=== PATIENT | male | born 1965 | race Two or more races ===

== ENCOUNTER 2020-07-09 11:03 | Outpatient (REF) | payer OTHER, SELFPAY | END 2020-07-09 11:04 | disposition home or self-care (01) | LOC: HO.LAB 11:03 | PROVIDERS: Visit Provider Internal Medicine | DX: Z20.828 Contact with and (suspected) exposure to other viral communicable diseases (principal) | CPT/HCPCS: U0003 ==

== ENCOUNTER 2024-09-11 08:22 | Emergency (ER) | payer OTHER, SELFPAY ==
--- NOTE | ~2024-09-11 | US_ITS ---
EXAMINATION: US TRIPLEX LOWER EXTREMITY, RIGHT CLINICAL INFORMATION: Pain in right lower extremity COMPARISON: None available. TECHNIQUE: Color-flow triplex imaging with spectral analysis and compression Doppler were performed on the right lower extremity. FINDINGS: Respiratory variation, normal compression and augmented flow are noted throughout the right lower extremity. The visualized common femoral vein, superficial femoral vein, profunda femoral vein, popliteal vein and midcalf peroneal and posterior tibial venous segments show no evidence of deep venous thrombosis. There is no Clemons's cyst. Nonspecific prominent 2.7 cm inguinal lymph node. US/US venous duplex LE RT IMPRESSION: No acute deep venous thrombosis involving the right lower extremity. Electronically signed by: Sergei Pinto MD 09/11/2024 03:20 PM [facility]
--- NOTE | ~2024-09-11 | XR_ITS ---
EXAMINATION: XR KNEE, RIGHT CLINICAL INFORMATION: right knee pain COMPARISON: October 02, 2019 TECHNIQUE: Four views of the right knee. FINDINGS: Endplate sclerosis involving the medial and to a lesser extent lateral tibial plateau. Small marginal osteophyte formation the medial femoral condyle and medial tibial plateau. Asymmetric joint space narrowing involving mostly the medial compartment. No acute cortical disruption or gross malalignment. Osteopenia versus the processes. Suprapatellar bursa joint effusion, moderate volume. No lytic or blastic lesions. XR/XR knee RT 4V IMPRESSION: Tricompartmental osteoarthrosis involving mostly the medial compartment. Suprapatellar bursa joint effusion. Electronically signed by: Sergei Pinto MD 09/11/2024 09:43 AM [facility]
[2024-09-11 08:35] VITALS: BP 128/80; PULSE 73; RESP 16; TEMP 36.5; O2SAT 94; BMI 32.2
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
[2024-09-11 15:28] VITALS: BP 141/81; PULSE 72; RESP 18; TEMP 36.2; O2SAT 95
[2024-09-11 15:33] VITALS: BP 141/81; PULSE 72; RESP 18; TEMP 36.2; O2SAT 95
== END 2024-09-11 15:33 | disposition home or self-care (01) ==
PROVIDERS: Emergency Provider Emergency Medicine
DX: M17.12 Unilateral primary osteoarthritis, left knee (principal); M25.561 Pain in right knee; M10.061 Idiopathic gout, right knee; M25.461 Effusion, right knee; R60.0 Localized edema
CPT/HCPCS: 73564; 93971; 99282; 99284

== ENCOUNTER → 2024-09-11 09:30 | Outpatient (BNV) | payer OTHER, SELFPAY | PROVIDERS: Visit Provider Radiology Diagnostic Radiology | DX: M79.661 Pain in right lower leg (principal); M17.11 Unilateral primary osteoarthritis, right knee; M25.461 Effusion, right knee | CPT/HCPCS: 73564; 93971 ==

== ENCOUNTER 2024-10-06 07:24 | Outpatient (REF) | payer OTHER, SELFPAY | END 2024-10-06 07:25 | disposition home or self-care (01) | LOC: HO.HOSX 07:24 | PROVIDERS: Visit Provider Physician Assistant | DX: Z13.89 Encounter for screening for other disorder (principal) ==

== ENCOUNTER 2025-01-12 13:06 | Observation (INO) | payer OTHER, SELFPAY ==
--- NOTE | ~2025-01-12 | XR_ITS ---
EXAMINATION: XR ELBOW, RIGHT CLINICAL INFORMATION: atraumatic right elbow pain COMPARISON: None available. TECHNIQUE: AP, lateral, and oblique views of the right elbow. FINDINGS: The bones and soft tissues are normal. No acute fracture or dislocation. There is a large Olecranon enthesophyte. There is moderate joint effusion with positive anterior and posterior fat pad sign. There is soft tissue calcification with soft tissue swelling posterior to elbow joint likely calcific bursitis XR/XR elbow RT min 3V IMPRESSION: Unremarkable right elbow exam. Electronically signed by: Julio C Constantino MD 01/12/2025 02:05 PM EDT
--- NOTE | ~2025-01-12 | CT_ITS ---
CLINICAL HISTORY: atraumatic pain, effusion and fat pad sign on XR Examination: Noncontrast CT of the right elbow Indication: Occult fracture. Comparison: Radiograph, 01/12/2025 Findings: There is a small elbow joint effusion present. There are moderate degenerative changes. No CT evidence of fracture or malalignment. There is edema/thickening of the olecranon bursa with calcifications. 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 No evidence of fracture. Small joint effusion. This document has been electronically signed by: Nehemiah Elaine MD on 01/12/2025 18:30:00
--- NOTE | ~2025-01-12 | XR_ITS ---
EXAMINATION: XR ANKLE, LEFT CLINICAL INFORMATION: atraumatic L ankle pain COMPARISON: None available. TECHNIQUE: AP, lateral, and mortise views of the left ankle. FINDINGS: There is mild lateral malleolar soft tissue swelling. No visible acute fracture or dislocation seen. Ankle mortise intact. XR/XR ankle LT min 3V IMPRESSION: Mild soft tissue swelling. No acute fracture or dislocation. Electronically signed by: Julio C Constantino MD 01/12/2025 02:06 PM EDT
[2025-01-12 13:23] VITALS: BP 109/71; PULSE 93; RESP 20; TEMP 37.2; O2SAT 95
--- NOTE | 2025-01-12 13:32 | ED.GENADULT ---
HPI - General Adult General Chief complaint: Extremity Problem Stated complaint: L Foot & R Ankle Nerve Issues Time Seen by Provider: 01/12/25 17:32 Related Data Previous Rx's ?Medication ?Instructions ?Recorded acetaminophen 500 mg tablet 500 mg PO Q6H PRN fever or pain 09/11/24 (Tylenol Extra Strength) #14 tabs naproxen 500 mg tablet 500 mg PO BID PRN pain 10 days #20 09/11/24 tabs Allergies Allergy/AdvReac Type Severity Reaction Status Date / Time No Known Allergies Allergy Verified 01/12/25 13:24 [No Known Allergies*] PMFSH Social History Social History Advance Directives: No Advance Directives Information Provided: Yes Physical Exam ED Vital Signs: Vital Signs - 24 hr 01/12/25 13:23 Temperature 99 F Pulse Rate 93 Respiratory Rate 20 Blood Pressure 109/71 Pulse Oximetry 95 Oxygen Delivery Method Room Air BMI result Body Mass Index 30.0 Medications Administered Discontinued Medications Generic Name Dose Route Start Last Admin Trade Name Freq PRN Reason Stop Dose Admin Ketorolac Tromethamine 30 mg 01/12/25 17:36 01/12/25 19:25 Ketorolac Tromethamine 30 Mg/Ml Vial IVPUSH 01/12/25 17:37 30 mg ONCE ONE Administration Methylprednisolone Sodium Succinate 60 mg 01/12/25 17:36 01/12/25 19:25 Methylprednisolone Sod Succ 125 Mg Vial IVPUSH 01/12/25 17:37 60 mg ONCE ONE Administration Pantoprazole Sodium 40 mg 01/12/25 17:36 01/12/25 19:25 Pantoprazole Sodium 40 Mg/10 Ml Vial IVPUSH 01/12/25 17:37 40 mg ONCE ONE Administration Medical Decision Making Lab Data 01/12/25 18:09 01/12/25 18:09 Labs: Lab Results 01/12/25 Range/Units 18:09 WBC 11.6 H (4.8-10.8) X10*3/uL RBC 4.88 (4.60-5.80) X10*6/uL Hgb 14.3 (14.0-18.0) g/dl Hct 43.1 (42.0-52.0) % MCV 88.3 (80.0-98.0) fL MCH 29.3 (27.0-33.0) pg MCHC 33.2 (31.0-36.0) g/dl RDW 14.2 (11.0-16.0) % Plt Count 271 (160-400) X10*3/uL MPV 10.5 (9.4-12.4) fL Immature Gran % (Auto) 0.4 (0.0-0.4) % Neut % (Auto) 75.4 H (45-73) % Lymph % (Auto) 17.0 L (20-40) % [place] % (Auto) 6.4 (2-11) % Eos % (Auto) 0.5 (0-4) % Baso % (Auto) 0.3 (0-2) % Lymph # (Auto) 2.0 (1.2-4.9) X10*3/uL [place] # (Auto) 0.7 (0.1-1.2) X10*3/uL Eos # (Auto) 0.1 (0.0-0.4) X10*3/uL Baso # (Auto) 0.0 (0.0-0.2) X10*3/uL Abs Immat Gran (auto) 0.05 H (0.00-0.03) X10*3/uL Absolute Neuts (auto) 8.7 H (2.0-8.3) x10*3/uL Absolute Nucleated RBC 0.000 (0.0-0.012) X10*3/uL Nucleated RBC % (auto) 0.0 (0.0-0.2) /100WBC ESR 20 H (0-15) MM/HR Sodium 140 (135-145) mmol/L Potassium 4.4 (3.3-5.1) mmol/L Chloride 99 (96-108) mmol/L Carbon Dioxide 30 H (22-29) mmol/L Anion Gap 15 (12-20) BUN 11 (9-16) mg/dL Creatinine 1.06 (0.5-1.4) mg/dL Estim Creat Clear Calc 87.1 Estimated GFR > 60 Random Glucose 117 H (60-115) mg/dL Lactic Acid 1.1 (0.5-2.0) mmol/L Uric Acid 9.6 H (3.4-7.0) mg/dL Calcium 10.2 (8.4-10.2) mg/dL Total Bilirubin 1.3 H (0.0-1.0) mg/dL AST 21 (5-37) U/L ALT 22 (0-40) U/L Alkaline Phosphatase 73 (39-117) U/L C-Reactive Protein 5.27 H (< or = 0.50) mg/dL Total Protein 7.8 (6.5-8.0) g/dL Albumin 4.9 (3.5-5.0) g/dL Discharge Plan Discharge Prescriptions: No Action acetaminophen [Tylenol Extra Strength] 500 mg tablet 500 mg PO Q6H PRN (Reason: fever or pain) Qty: 14 0RF naproxen 500 mg tablet 500 mg PO BID PRN (Reason: pain) 10 Days Qty: 20 0RF Print Language: Trinidadian
--- NOTE | 2025-01-12 17:30 | ED_ITS ---
HPI - Extremity Problem General Chief complaint: Extremity Problem Stated complaint: L Foot & R Ankle Nerve Issues Related Data Previous Rx's ?Medication ?Instructions ?Recorded acetaminophen 500 mg tablet 500 mg PO Q6H PRN fever or pain 09/11/24 (Tylenol Extra Strength) #14 tabs naproxen 500 mg tablet 500 mg PO BID PRN pain 10 days #20 09/11/24 tabs Allergies Allergy/AdvReac Type Severity Reaction Status Date / Time No Known Allergies Allergy Verified 01/12/25 13:24 [No Known Allergies*] Physical Exam Vital Signs: Vital Signs: Last Vital Signs Temp 99 F 01/12/25 13:23 Pulse 93 01/12/25 13:23 Resp 20 01/12/25 13:23 BP 109/71 01/12/25 13:23 Pulse Ox 95 01/12/25 13:23 O2 Del Method Room Air 01/12/25 13:23 BMI result Body Mass Index 30.0 Course Course Course Narrative: This is an RME performed by Gilda Ferguson CNP: Additional HPI, ROS, PE not included below will be deferred to primary provider. Patient is a 59-year-old male who presents emergency department for evaluation, complaining of multiple areas of arthritic pain including right shoulder and elbow, left ankle, having a difficult time ambulating due to pain. XR of the right elbow and ankle were obtained prior to my evaluation. XR of the elbow with moderate effusion, anterior and posterior fat pad sign, no significant overlying erythema on examination but unable to fully extend the arm, admits to having fever last night. Worries have been placed for serum labs including inflammatory markers, blood cultures, and CT of the elbow. Placed back in waiting room pending bed availability Discharge Plan Discharge Prescriptions: No Action acetaminophen [Tylenol Extra Strength] 500 mg tablet 500 mg PO Q6H PRN (Reason: fever or pain) Qty: 14 0RF naproxen 500 mg tablet 500 mg PO BID PRN (Reason: pain) 10 Days Qty: 20 0RF Print Language: Montserratian
--- NOTE | 2025-01-12 17:32 | ED_ITS ---
HPI - Extremity Problem General Chief complaint: Extremity Problem Stated complaint: L Foot & R Ankle Nerve Issues Time Seen by Provider: 01/12/25 17:32 History of Present Illness ED Provider: Donny Ponce MD HPI Narrative: 59-year-old male with a history of gout. No longer on allopurinol for several years. Previous left ankle arthrocentesis. Chronic bursal region swelling bilateral elbows however over the past 24 hours he has pain limited range of motion and subjective fever particularly overnight with night sweats of the right elbow. No traumatic injuries. No blood thinners. Related Data Previous Rx's ?Medication ?Instructions ?Recorded colchicine 0.6 mg tablet (Colcrys) 0.6 mg PO BID #28 tabs 01/13/25 indomethacin 25 mg capsule 50 mg (2 x 25 mg) PO TID PRN gout 01/13/25 pain #30 caps Allergies Allergy/AdvReac Type Severity Reaction Status Date / Time No Known Allergies Allergy Verified 01/12/25 13:24 [No Known Allergies*] [facility] Social History Social History Unable to assess alcohol history related to: Unknown Patient Tobacco Use Status: Never used Tobacco Physical Exam 2 Vital Signs: Vital Signs: Last Vital Signs Temp 97.5 F 01/13/25 13:22 Pulse 75 01/13/25 13:22 Resp 16 01/13/25 13:22 BP 137/78 01/13/25 13:22 Pulse Ox 99 01/13/25 13:22 O2 Del Method Room Air 01/13/25 13:22 BMI result Body Mass Index 30.0 Const: Other: EXAM: Gen: Alert, awake, well appearing, well hydrated. Head: Atraumatic Eyes: Anicteric, Normal conjunctiva. ENT: Moist mucosa, no pallor. ? Neck: Supple. Respiratory: Breathing comfortably, No distress.Clear to auscultation bilaterally, symmetric chest expansion, No wheeze, rales, ronchi. Cardiovascular: Regular rate and rhythm. No murmurs or rub. Well perfused periphery, warm extremities. No edema. ? Abdominal: No FOCAL TENDERNESS. Soft, no objective distension. No palpable masses or obvious organomegaly. ?No guarding, no rebound tenderness or other peritoneal findings. : No flank tenderness. Neuro: Alert. Gross movement of all extremities intact. ? Psych: Calm. Cooperative. MSK: Right upper extremity. Mild pain tenderness throughout the right shoulder but good range of motion. No redness warmth or effusion. Neurovascularly intact right upper extremity. Right elbow limited range of motion to about 20 degrees of extension. Holds it in flexion. Chronic appearing soft rubbery olecranon region. No redness or palpable effusion no warmth. Compartments soft Left ankle diffuse mild swelling without bony tenderness. Limited range of motion with subjective pain. Neurovascularly intact well-perfused feet intact DP PT pulses. Feet appear atraumatic no bruising soft compartments of the lower extremity Vital signs: See flowsheet Medications Administered Discontinued Medications Generic Name Dose Route Start Last Admin Trade Name Freq PRN Reason Stop Dose Admin Ceftriaxone Sodium 2 gm 01/12/25 22:39 01/12/25 22:59 Ceftriaxone Sodium 2 Gm Vial IVPUSH 01/12/25 22:40 2 gm ONCE ONE Administration Colchicine 0.6 mg 01/13/25 09:35 01/13/25 09:14 Colchicine 0.6 Mg Tablet PO 01/13/25 09:36 0.6 mg ONCE ONE Administration Colchicine 1.2 mg 01/13/25 08:32 01/13/25 09:14 Colchicine 0.6 Mg Tablet PO 01/13/25 08:33 1.2 mg ONCE ONE Administration Enoxaparin Sodium 40 mg 01/13/25 00:00 01/13/25 03:08 Enoxaparin Sodium 40 Mg/0.4 Ml Syringe SUBCUT Not Given Q24H GUNNAR Vancomycin HCl 2,000 mg in 500 mls @ 250 mls/hr 01/12/25 22:39 01/13/25 00:59 Vancomycin/Ns IV 01/13/25 00:38 Infused ONCE ONE Infusion Vancomycin HCl 1,000 mg/ 270 mls @ 270 mls/hr 01/13/25 11:00 01/13/25 11:54 Sodium Chloride IV 270 mls/hr Q12H GUNNAR Administration Indomethacin 50 mg 01/13/25 09:00 01/13/25 09:58 Indomethacin 25 Mg Capsule PO 50 mg TID GUNNAR Administration Ketorolac Tromethamine 30 mg 01/12/25 17:36 01/12/25 19:25 Ketorolac Tromethamine 30 Mg/Ml Vial IVPUSH 01/12/25 17:37 30 mg ONCE ONE Administration Lidocaine/Epinephrine 10 ml 01/12/25 20:53 01/12/25 21:08 Lidocaine Hcl 1%/Epi 1:100,000 10 Ml Vial SUBCUT 01/12/25 20:54 10 ml ONCE ONE Administration Methylprednisolone Sodium Succinate 60 mg 01/12/25 17:36 01/12/25 19:25 Methylprednisolone Sod Succ 125 Mg Vial IVPUSH 01/12/25 17:37 60 mg ONCE ONE Administration Pantoprazole Sodium 40 mg 01/12/25 17:36 01/12/25 19:25 Pantoprazole Sodium 40 Mg/10 Ml Vial IVPUSH 01/12/25 17:37 40 mg ONCE ONE Administration Sodium Chloride 3 ml 01/13/25 00:00 01/13/25 08:40 0.9 % Sodium Chloride Flush 3 Ml Syringe IVFLUSH 3 ml QSHIFT GUNNAR Administration Medical Decision Making Medical Decision Making [facility] Narrative: [age] male with self-reported chronic currently untreated gout. Now with chronic left ankle swelling which is relatively unchanged but new severe right elbow pain limited range of motion and subjective fever. Differential broad though certainly includes gout or other inflammatory arthritic 80s, septic arthritis, hemarthrosis less likely. Could be occult intra-articular fracture. Plan for CT. Plan for arthrocentesis. Inflammatory markers CBC culture x1 Differential Diagnosis Differential Diagnoses: The differential diagnosis associated with the presentation includes Gout, pseudogout, inflammatory arthritis, septic arthritis Admission/Observation Consideration of admission/observation: Escalation of care including admission/observation considered Consult Healthcare Provider Management of the patient was discussed with: Hospitalist (I discussed the case with the hospitalist I feel strongly the patient should it be placed in an medical observation status pending Gram stain crystal analysis given the high WBC count and clinical exam) and Distribution Center Supervisor (Orthopedic MANAV Berry suggests waiting for Gram stain and crystal.) Lab Data [facility] Lab Attestation statement: I reviewed the patient's lab results. 01/13/25 06:55 01/13/25 06:55 Labs: Lab Results 01/12/25 01/12/25 Range/Units 18:09 21:15 WBC 11.6 H (4.8-10.8) X10*3/uL RBC 4.88 (4.60-5.80) X10*6/uL Hgb 14.3 (14.0-18.0) g/dl Hct 43.1 (42.0-52.0) % MCV 88.3 (80.0-98.0) fL MCH 29.3 (27.0-33.0) pg MCHC 33.2 (31.0-36.0) g/dl RDW 14.2 (11.0-16.0) % Plt Count 271 (160-400) X10*3/uL MPV 10.5 (9.4-12.4) fL Immature Gran % (Auto) 0.4 (0.0-0.4) % Neut % (Auto) 75.4 H (45-73) % Lymph % (Auto) 17.0 L (20-40) % [place] % (Auto) 6.4 (2-11) % Eos % (Auto) 0.5 (0-4) % Baso % (Auto) 0.3 (0-2) % Lymph # (Auto) 2.0 (1.2-4.9) X10*3/uL [place] # (Auto) 0.7 (0.1-1.2) X10*3/uL Eos # (Auto) 0.1 (0.0-0.4) X10*3/uL Baso # (Auto) 0.0 (0.0-0.2) X10*3/uL Abs Immat Gran (auto) 0.05 H (0.00-0.03) X10*3/uL Absolute Neuts (auto) 8.7 H (2.0-8.3) x10*3/uL Absolute Nucleated RBC 0.000 (0.0-0.012) X10*3/uL Nucleated RBC % (auto) 0.0 (0.0-0.2) /100WBC ESR 20 H (0-15) MM/HR Sodium 140 (135-145) mmol/L Potassium 4.4 (3.3-5.1) mmol/L Chloride 99 (96-108) mmol/L Carbon Dioxide 30 H (22-29) mmol/L Anion Gap 15 (12-20) BUN 11 (9-16) mg/dL Creatinine 1.06 (0.5-1.4) mg/dL Estim Creat Clear Calc 87.1 Estimated GFR > 60 Random Glucose 117 H (60-115) mg/dL Lactic Acid 1.1 (0.5-2.0) mmol/L Uric Acid 9.6 H (3.4-7.0) mg/dL Calcium 10.2 (8.4-10.2) mg/dL Total Bilirubin 1.3 H (0.0-1.0) mg/dL AST 21 (5-37) U/L ALT 22 (0-40) U/L Alkaline Phosphatase 73 (39-117) U/L C-Reactive Protein 5.27 H (< or = 0.50) mg/dL Total Protein 7.8 (6.5-8.0) g/dL Albumin 4.9 (3.5-5.0) g/dL Synovial Source RIGHT ELBOW Synovial WBC 96.460 X10*3/uL Synovial RBC < 0.002 X10*6/uL Synovial Neutrophils 98 % Synovial Monocytes 2 % I was informed by the laboratory that Gram stain, crystals not available until tomorrow for this reason I think the patient should be observed. I discussed the case with hospitalist who would like me to initiate antibiotics my preference would be to hold off until the Gram stain and crystal analysis tomorrow given that the patient does not have a fever and is not overtly septic. I have ordered cultures in the antibiotics as requested by the medical hospitalist. Twenty-five patients in the waiting room, preferences for patient to be observed for results, pain control on the medical service Procedures Procedure Narrative Procedure Narrative: PROCEDURE NOTE Procedure: Arthrocentesis Performed by: Donny Ponce MD Indication: rule out septic joint [place] Protocol: a time out was performed and the correct patient and site were verified The joint was prepped and draped in proper sterile fashion. The overlying skin was anesthetized with 8 ml of 1% lidocaine. A needle was used to aspirate fluid from the joint using appropriate anatomic landmarks. fluid was obtained from the joint. Approximately 3 milliliters of fluid was obtained. The fluid was then sent to the lab for appropriate studies. The patient tolerated the procedure well, was bandaged, and had no complications. Post-Procedure Diagnosis: same as indication Complications: none Estimated Blood Loss: minimal Specimens Removed: as documented above Prosthetic devices/implants: no Discharge Plan Discharge Clinical Impression: Effusion of elbow joint, right Patient Disposition: Admitted as Observation Interventions: Admission Worksheet (ED) Last Done: 01/13/25 09:16 Discharge Date/Time: 01/13/25 13:25
--- OUTSIDE RECORDS SUMMARY | 2025-01-12 17:56 | XMS_ITS | Continuity of Care Document ---
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 Role Phone Unavailable Unavailable Unavailable Allergies, Adverse Reactions, Alerts Substance Reaction Status Criticality No Known allergies Medications Medication Instructions Dosage Effective Dates (start - stop) Status Comments ibuprofen 600 mg Tab take 1 tablet (600M G) by oral route 3 times every day with food 600 MG - Active cyclobenzaprine 10 mg Tab take 1 tablet (10MG) by ORAL route every bedtime PRN - Active fluticasone 50 mcg/actuation Nasal [place], Susp spray 2 spray by intranasal route every day in each nostril - Active Procedures Procedure Date OFFICE/OUTPATIENT VISIT, [facility] [place] Advance Directives Directive Yes / No Effective Date File Name Resuscitation Not Answered N/A N/A Life Support Not Answered N/A N/A Intubation Not Answered N/A N/A Antibiotics Not Answered N/A N/A IV Fluid Support Not Answered N/A N/A Tube Feed Not Answered N/A N/A Other Directive N/A N/A WARNING:The information contained in this section is historical and is provided for information only and does not constitute a legal document or any assurance that the information is still accurate. Please verify the information with the herrera of the legal document before using it for clinical purposes. Encounters Encounter Description Practice Location Reason(s) For Visit Diagnoses Date Provider Providers Copied on Encounter OFFICE/OUTPA TIENT VISIT, NEW [facility], [address], [place], [place], [id number], [place] tel:[phone] Quick Sick - LSX upper/lowe r back pain (chief complaint) Pain, upper backNasal congestionLacer ation Jan-0 4-201 2 No Information Family History Family Member Type Diagnosis Age At Onset Negative family hx Problem (finding) Tuberculosis Negative family hx Problem (finding) Dyslipidemia Negative family hx Problem (finding) Asthma Negative family hx Problem (finding) Cancer Negative family hx Problem (finding) Allergies Negative family hx Problem (finding) Diabetes mellitus Negative family hx Problem (finding) Anesthesia proble ms Negative family hx Problem (finding) Renal disease Negative family hx Problem (finding) Anemia Negative family hx Problem (finding) Hypertension Negative family hx Problem (finding) Coronary artery d isease Negative family hx Problem (finding) Bleeding disorder s Payers Payer name Insurance type Covered alliance party ID Helena nobles(s) Quick Sick - No Pay Stubs 09 Social History Type Description Quantity Date Captured Comments Alcohol Use Details Caffeine Use Details Unknown Tobacco Use Status No Information Smoking Status No Information Sex Male Vital Signs Date / Time: Height Weight BMI Pulse Rate Blood Pressure Temperature Respiratory Rate Body Surface Area Head Circumference Head Circ. Percentile Wt./Sukh. Percentile BMI percentile Pulse Ox Inhaled Ox 11:30 AM 64.00 in 147.00 lbs 25.2 3 kg/m eter (2) 72 /min 132/84 mm[Hg] 97.40 F 20 /min 1.73 meter(2) Chief Complaint And Reason For Visit From encounter dated '01/11/2012 10:40'. upper/lower back pain (chief complaint). Description: Patient c/o 1 month with intermittent right upper back pain. The pain is described as burning and is worse when lying down on his right side. He denies any trauma or new activities, work or exercises. No similar symptoms previously. He takes tylenol that helps some. 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 He denies fevers, coughing, nasal drainage.Had sutures placed 2 months ago on right brow. Reason For Referral Reason For Referral No Information History Of Present Illness Encounter Date Complaint History Of Prese nt Illness upper/lower back pain Patient c/ o 1 month with intermittent right upper back pain. The pain is described as burning and is worse when lying down on his right side. He denies any trauma or new activities, work or exercises. No similar symptoms previously. He takes tylenol that helps some. 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 He denies fevers, coughing, nasal drainage.Had sutures placed 2 months ago on right brow. Functional Status Date Functional Assessmen t No Information Instructions Date Instruction Additional Infor mation No Information Assessments Type Assessment Date No Information Patient Care Teams Name Effective Dates (start - stop) Status Members No Information
[2025-01-12 18:16] LABS: MANUAL DIFF FLAG NO
[2025-01-12 18:18] LABS: Basophils Percent Auto 0.3 % (0-2); Eosinophils Absolute Auto 0.1 X10*3/uL (0.0-0.4); Eosinophils Percent Auto 0.5 % (0-4); Hematocrit 43.1 % (42.0-52.0); Hemoglobin 14.3 g/dl (14.0-18.0); Imm Gran Abs Auto 0.05 X10*3/uL (0.00-0.03); Imm Gran Pct Auto 0.4 % (0.0-0.4); Mean Corpuscular HGB Conc 33.2 g/dl (31.0-36.0); Mean Corpuscular Hemoglobin 29.3 pg (27.0-33.0); Mean Corpuscular Volume 88.3 fL (80.0-98.0); Mean Platelet Volume 10.5 fL (9.4-12.4); Monocytes Absolute Auto 0.7 X10*3/uL (0.1-1.2); Monocytes Percent Auto 6.4 % (2-11); Neutrophils Absolute Auto 8.7 x10*3/uL (2.0-8.3); Neutrophils Percent Auto 75.4 % (45-73); Platelet Count 271 X10*3/uL (160-400); Red Blood Count 4.88 X10*6/uL (4.60-5.80); Red Cell Distribution Width 14.2 % (11.0-16.0); White Blood Count 11.6 X10*3/uL (4.8-10.8)
[2025-01-12 18:32] LABS: Lactic Acid 1.1 mmol/L (0.5-2.0)
[2025-01-12 18:33] LABS: Uric Acid 9.6 mg/dL (3.4-7.0)
[2025-01-12 18:39] LABS: Alanine Aminotransferase 22 U/L (0-40); Albumin Level 4.9 g/dL (3.5-5.0); Anion Gap 15 (12-20); Aspartate Amino Transferase 21 U/L (5-37); Bilirubin Total 1.3 mg/dL (0.0-1.0); Blood Urea Nitrogen 11 mg/dL (9-16); C Reactive Protein 5.27 mg/dL (< or = 0.50); Calcium 10.2 mg/dL (8.4-10.2); Carbon Dioxide 30 mmol/L (22-29); Chloride 99 mmol/L (96-108); Creatinine Clr Calc Pharmacy 87.1; Estimated Glomerular Filt Rate > 60; Glucose Random 117 mg/dL (60-115); Potassium 4.4 mmol/L (3.3-5.1); Sodium 140 mmol/L (135-145); Total Protein 7.8 g/dL (6.5-8.0)
[2025-01-12 18:43] LABS: Alkaline Phosphatase 73 U/L (39-117)
[2025-01-12 18:55] LABS: Erythrocyte Sedimentation Rate 20 MM/HR (0-15)
[2025-01-12] MEDS: Ketorolac Tromethamine 30 MG/ML VIAL IVPUSH (19:25)
[2025-01-12] MEDS: Pantoprazole Sodium 40 MG/10 ML VIAL IVPUSH (19:25)
[2025-01-12] MEDS: Lidocaine HCl 1%/Epi 1:100,000 10 ML VIAL SUBCUT (21:08)
[2025-01-12 21:42] VITALS: BP 131/62; PULSE 73; RESP 14; O2SAT 95
[2025-01-12 21:43] LABS: Source Synovial Fluid RIGHT ELBOW
[2025-01-12 22:06] LABS: MN% 3.8 %; PMN% 96.2 %
[2025-01-12 22:07] LABS: RBC Synovial Fluid < 0.002 X10*6/uL
[2025-01-12 22:12] LABS: BF Shift QC OK YES; Man Diluent Bkgrd OK YES; Monocytes Synovial Fluid 2 %; Neutrophils Synovial Fluid 98 %
--- NOTE | 2025-01-12 22:48 | PC.NURSE ---
per brittany in lab- one set of cultures received- second set will need to be collected
[2025-01-12] MEDS: vancomycin/NS 2,000 MG/500 ML PLAST..BAG 250 MG IV (22:59)
[2025-01-12] MEDS: cefTRIAXone sodium 2 GM VIAL IVPUSH (22:59)
--- NOTE | 2025-01-12 23:11 | P.HPHOSP_ITS ---
History of Present Illness Date of Service: 01/12/25 Chief Complaint: Right elbow pain/swelling 59-year-old male with no significant past medical history presented to the hospital with a chief complaint of right elbow pain and swelling. Patient mentioned that he woke up with a pain in the right elbow and decreased range of motion. Denies any fevers. Reports he had an episode of gout couple of years ago on his left knee. Denies any further episodes after that. Patient denies any fever chills cough or sputum production. Denies numbness tingling or focal weakness. Review of all other systems is negative except mentioned above ER course: Per ER team, patient noted decreased range of motion on his right elbow; noted mild swelling and erythema; given pain medications. [place] [address]; empirically covered with antibiotics. Orthopedics team was notified. [facility] Social History Advance Directives: No Advance Directives Information Provided: Yes Meds Allergies Allergy/AdvReac Type Severity Reaction Status Date / Time No Known Allergies Allergy Verified 01/12/25 13:24 [No Known Allergies*] Active Medications: Current Medications Acetaminophen (Acetaminophen 325 Mg Tablet) 975 mg PO Q6H PRN PRN Reason: Pain, Mild 1-3,fever,headache Calcium Carbonate (Calcium Carbonate 750 Mg Tab.Chew) 750 mg PO Q4H PRN PRN Reason: Heartburn Ceftriaxone Sodium (Ceftriaxone Sodium 2 Gm Vial) 2 gm IVPUSH Q24H [facility] Enoxaparin Sodium (Enoxaparin Sodium 40 Mg/0.4 Ml Syringe) 40 mg SUBCUT Q24H [facility] Vancomycin HCl (Vancomycin/Ns) 2,000 mg in 500 mls @ 250 mls/hr IV ONCE ONE Stop: 01/13/25 00:38 Last Admin: 01/12/25 22:59 Dose: 250 mls/hr Magnesium Hydroxide (Milk Of Magnesia 30 Ml Oral.Susp) 30 ml PO DAILY PRN PRN Reason: Constipation Melatonin (Melatonin 3 Mg Tablet) 6 mg PO BEDTIME PRN PRN Reason: Insomnia Morphine Sulfate (Morphine Sulfate 4 Mg/Ml Cartridge) 2 mg IVPUSH Q4H PRN; Protocol PRN Reason: Pain, Severe (Pain Scale 7-10) Ondansetron HCl (Ondansetron Hcl 4 Mg/2 Ml Vial) 4 mg IVPUSH Q8H PRN PRN Reason: Nausea and Vomiting Oxycodone HCl (Oxycodone Hcl Immed Release 5 Mg Tablet) 5 mg PO Q6H PRN PRN Reason: Pain, Moderate(Pain Scale 4-6) Pharmacy Consult (Consult Rx Vancomycin Dosing) 1 each MISCELLANE DAILY PRN PRN Reason: Consult order Sodium Chloride (0.9 % Sodium Chloride Flush 3 Ml Syringe) 3 ml IVFLUSH QSHIFT [facility] Physical Exam 2 Vital Signs and Narrative: Vital Signs: Last Vital Signs Temp 99 F 01/12/25 13:23 Pulse 73 01/12/25 21:42 Resp 14 01/12/25 21:42 BP 131/62 01/12/25 21:42 Pulse Ox 95 01/12/25 21:42 O2 Del Method Room Air 01/12/25 21:42 BMI result Body Mass Index 30.0 Gen: Appears be in no acute distress HEENT: NCAT, Moist mucosa. Pulmonary: Vesicular breath sounds, fair air entry CVS: Normal S1-S2 Abdomen: BS+, Soft, Nontender Extremities: Warm well perfused; right elbow ROM maintained; nontender-patient is status post pain medications Neuro: Alert and awake. Results Labs 01/12/25 18:09 01/12/25 18:09 Labs: Laboratory Results - last 24 hr 01/12/25 01/12/25 18:09 21:15 MCV 88.3 MCH 29.3 MCHC 33.2 RDW 14.2 Plt Count 271 MPV 10.5 Immature Gran % (Auto) 0.4 Neut % (Auto) 75.4 H Lymph % (Auto) 17.0 L [place] % (Auto) 6.4 Eos % (Auto) 0.5 Baso % (Auto) 0.3 Lymph # (Auto) 2.0 [place] # (Auto) 0.7 Eos # (Auto) 0.1 Baso # (Auto) 0.0 Abs Immat Gran (auto) 0.05 H Absolute Neuts (auto) 8.7 H Absolute Nucleated RBC 0.000 Nucleated RBC % (auto) 0.0 ESR 20 H Anion Gap 15 Estim Creat Clear Calc 87.1 Estimated GFR > 60 Random Glucose 117 H Lactic Acid 1.1 Uric Acid 9.6 H Calcium 10.2 Total Bilirubin 1.3 H AST 21 ALT 22 Alkaline Phosphatase 73 C-Reactive Protein 5.27 H Total Protein 7.8 Albumin 4.9 Synovial Source RIGHT ELBOW Synovial WBC 96.460 Synovial RBC < 0.002 Synovial Neutrophils 98 Synovial Monocytes 2 Imaging Radiologist's Impressions: Impressions Ankle X-Ray 01/12/25 12:50 IMPRESSION: Mild soft tissue swelling. No acute fracture or dislocation. Electronically signed by: Julio C Constantino MD 01/12/2025 02:06 PM EDT RP Elbow X-Ray 01/12/25 12:54 IMPRESSION: Unremarkable right elbow exam. Electronically signed by: Julio C Constantino MD 01/12/2025 02:05 PM EDT RP Assessment and Plan (1) Effusion of elbow joint, right: Status: Acute Plan 59-year-old male with no significant past medical history presented to the hospital with a chief complaint of right elbow pain and swelling. Right elbow pain: Noted joint effusion-status post diagnostic tap which showed WBC [id number] for septic arthritis versus gout Empirically covered with ceftriaxone, vancomycin Pain control Orthopedics follow-up DVT prophylaxis: SubQ heparin Code status: Full code Quality Stroke Does the patient have a stroke diagnosis?: No VTE Prior VTE?: No VTE Risk Level:: Medical - moderate - high VTE Device Contraindication: Treatment Not Indicated VTE Drug Contraindication: N/A - Med Ordered
[2025-01-13 02:30] VITALS: BP 133/69; PULSE 62; RESP 14; TEMP 36.2; O2SAT 99
--- NOTE | 2025-01-13 05:54 | PC.NURSE ---
resting quietly in room with no obvious signs/symptoms of distress noted.
[2025-01-13 07:05] LABS: MANUAL DIFF FLAG NO
[2025-01-13 07:11] LABS: Basophils Percent Auto 0.2 % (0-2); Hemoglobin 13.9 g/dl (14.0-18.0); Imm Gran Abs Auto 0.04 X10*3/uL (0.00-0.03); Imm Gran Pct Auto 0.4 % (0.0-0.4); Lymphocytes Absolute Auto 0.9 X10*3/uL (1.2-4.9); Lymphocytes Percent Auto 9.5 % (20-40); Mean Corpuscular HGB Conc 33.9 g/dl (31.0-36.0); Mean Corpuscular Hemoglobin 29.4 pg (27.0-33.0); Mean Corpuscular Volume 86.9 fL (80.0-98.0); Mean Platelet Volume 10.6 fL (9.4-12.4); Monocytes Absolute Auto 0.2 X10*3/uL (0.1-1.2); Monocytes Percent Auto 2.1 % (2-11); Neutrophils Absolute Auto 8.2 x10*3/uL (2.0-8.3); Neutrophils Percent Auto 87.8 % (45-73); Platelet Count 228 X10*3/uL (160-400); Red Blood Count 4.72 X10*6/uL (4.60-5.80); Red Cell Distribution Width 13.5 % (11.0-16.0); White Blood Count 9.4 X10*3/uL (4.8-10.8)
[2025-01-13 07:22] LABS: Anion Gap 16 (12-20); Blood Urea Nitrogen 17 mg/dL (9-16); Calcium 9.6 mg/dL (8.4-10.2); Carbon Dioxide 24 mmol/L (22-29); Chloride 104 mmol/L (96-108); Creatinine Clr Calc Pharmacy 88.8; Estimated Glomerular Filt Rate > 60; Glucose Random 161 mg/dL (60-115); Potassium 4.8 mmol/L (3.3-5.1); Sodium 139 mmol/L (135-145)
[2025-01-13 07:36] VITALS: BP 94/51; PULSE 70; RESP 12; TEMP 36.8; O2SAT 98
--- NOTE | 2025-01-13 08:33 | PHA.PROG ---
Admission Date/Time: January 12, 2025 22:54 Indication: Other Weight in k.522 kg Adjusted body weight in Kg: [place] body weight in Kg: Obesity Dosing Indication % IBW: BMI 30.0 Serum Creatinine - Last 168 Hours 01/12/25 01/13/25 18:09 06:55 Creatinine 1.06 1.04 Estimated CrCl and GFR - Last 168 Hours 01/12/25 01/13/25 18:09 06:55 Estim Creat Clear Calc 87.1 88.8 Estimated GFR > 60 > 60 Vancomycin Loading Dose: 2000mg X1 Current Vancomycin Dosing Regimen: 1000mg Q12H Vancomycin Monitoring using AUC goal of 400 - 600 range with trough as surrogate marker: 499 Date and Time for next Vancomycin Level to be drawn: 01/14 @0900 Pharmacist Comments on Vancomycin Plan:Pt's renal appears stable, starting off with Q12 dosing to target trough 16.4. Vancomycin dosing will take advantage of [employer] as a clinical decision support tool that uses Bayesian modeling to calculate individual patient's pharmacokinetic parameters and forecast the patient's drug concentration time course with the target goal AUC 24 range of 400 - 600 mg/L/hr.
[2025-01-13] MEDS: 0.9 % Sodium Chloride Flush 3 ML SYRINGE IVFLUSH (08:40)
[2025-01-13 09:00] VITALS: BP 98/60; PULSE 70; RESP 14; TEMP 36.8; O2SAT 99
[2025-01-13] MEDS: Colchicine 0.6 MG TABLET PO (09:14)
[2025-01-13] MEDS: Colchicine 0.6 MG TABLET 1.2 MG PO (09:14)
[2025-01-13 09:20] LABS: Estimated Average Glucose 108 mg/dL; Hemoglobin A1C 129.5358 umol/L; Hemoglobin A1c % 5.4 % (<6.0); Total Hemoglobin (HGBA1C) 3645.3831 umol/L
--- NOTE | 2025-01-13 09:42 | PHA.MEDREC ---
Addendum entered by Don Robles RPh 01/13/25 09:46: Reviewed by [facility] Original Note: Pharmacy Consult ? Medication Reconciliation Pharmacy has completed the medication reconciliation. Spoke with patient through an director of physical security to confirm.
[2025-01-13] MEDS: Indomethacin 25 MG CAPSULE 50 MG PO (09:58)
[2025-01-13 10:00] VITALS: BP 113/72; PULSE 76; RESP 14; TEMP 36.7; O2SAT 98
--- NOTE | 2025-01-13 10:03 | PC.NURSE ---
[place] speaking patient. This RN assumed care of patient @ 0700. Patient resting comfortably in room no apparent distress. Medications administered per MAR. VSS and up to date. Patient awaiting bed placement
[2025-01-13] MEDS: vancomycin HCL 1,000 MG in 0.9 % Sodium Chloride 250 ML 270 MG IV (11:54)
--- NOTE | 2025-01-13 12:14 | PM.CNOR ---
History of Present Illness [facility] Consult date: 01/13/25 Chief complaint: gout Narrative: 59-year-old male with presented to the hospital with a chief complaint of right elbow pain and swelling. Patient mentioned that he woke up with a pain in the right elbow and decreased range of motion. Denies any fevers. Reports he had an episode of gout couple of years ago on his left knee. ER course: Per ER team, patient noted decreased range of motion on his right elbow; noted mild swelling and erythema; given pain medications. [place] [id number]; empirically covered with antibiotics. Orthopedics was consulted for recommendations Review of Systems Review of Systems: Yes all other systems are reviewed and are negative PMFSH Social History Social History Unable to assess alcohol history related to: Unknown Patient Tobacco Use Status: Never used Tobacco Meds Allergies Allergy/AdvReac Type Severity Reaction Status Date / Time No Known Allergies Allergy Verified 01/12/25 13:24 [No Known Allergies*] Active Medications: Current Medications Acetaminophen (Acetaminophen 325 Mg Tablet) 975 mg PO Q6H PRN PRN Reason: Pain, Mild 1-3,fever,headache Calcium Carbonate (Calcium Carbonate 750 Mg Tab.Chew) 750 mg PO Q4H PRN PRN Reason: Heartburn Ceftriaxone Sodium (Ceftriaxone Sodium 1 Gm Vial) 1 gm IVPUSH Q24H [facility] Colchicine (Colchicine 0.6 Mg Tablet) 0.6 mg PO BID [facility] Enoxaparin Sodium (Enoxaparin Sodium 40 Mg/0.4 Ml Syringe) 40 mg SUBCUT Q24H [facility] Last Admin: 01/13/25 03:08 Dose: Not Given Vancomycin HCl 1,000 mg/ (Sodium Chloride) 270 mls @ 270 mls/hr IV Q12H [facility] Last Admin: 01/13/25 11:54 Dose: 270 mls/hr Indomethacin (Indomethacin 25 Mg Capsule) 50 mg PO TID [facility] Last Admin: 01/13/25 09:58 Dose: 50 mg Magnesium Hydroxide (Milk Of Magnesia 30 Ml Oral.Susp) 30 ml PO DAILY PRN PRN Reason: Constipation Magnesium Hydroxide (Milk Of Magnesia 30 Ml Oral.Susp) 30 ml PO DAILY PRN PRN Reason: Constipation Melatonin (Melatonin 3 Mg Tablet) 6 mg PO BEDTIME PRN PRN Reason: Insomnia Morphine Sulfate (Morphine Sulfate 4 Mg/Ml Cartridge) 2 mg IVPUSH Q4H PRN; Protocol PRN Reason: Pain, Severe (Pain Scale 7-10) Ondansetron HCl (Ondansetron Hcl 4 Mg/2 Ml Vial) 4 mg IVPUSH Q8H PRN PRN Reason: Nausea and Vomiting Oxycodone HCl (Oxycodone Hcl Immed Release 5 Mg Tablet) 5 mg PO Q6H PRN PRN Reason: Pain, Moderate(Pain Scale 4-6) Pharmacy Consult (Consult Rx Vancomycin Dosing) 1 each MISCELLANE DAILY PRN PRN Reason: Consult order Sodium Chloride (0.9 % Sodium Chloride Flush 3 Ml Syringe) 3 ml IVFLUSH QSHIFT [facility] Last Admin: 01/13/25 08:40 Dose: 3 ml Physical Exam Vital Signs: Vital Signs: Last Vital Signs Temp 98.0 F 01/13/25 10:00 Pulse 76 01/13/25 10:00 Resp 14 01/13/25 10:00 BP 113/72 01/13/25 10:00 Pulse Ox 98 01/13/25 10:00 O2 Del Method Room Air 01/13/25 10:00 BMI result Body Mass Index 30.0 Const: General: cooperative, healthy appearing and comfortable Extrem: Other: Right elbow no joint effusion present, no redness, no pain with ROM. Results Labs 01/13/25 06:55 01/13/25 06:55 Labs: Abnormal lab results 01/12/25 01/13/25 Range/Units 18:09 06:55 WBC 11.6 H (4.8-10.8) X10*3/uL Hgb 13.9 L (14.0-18.0) g/dl Hct 41.0 L (42.0-52.0) % Neut % (Auto) 75.4 H 87.8 H (45-73) % Lymph % (Auto) 17.0 L 9.5 L (20-40) % Lymph # (Auto) 0.9 L (1.2-4.9) X10*3/uL Abs Immat Gran (auto) 0.05 H 0.04 H (0.00-0.03) X10*3/uL Absolute Neuts (auto) 8.7 H (2.0-8.3) x10*3/uL ESR 20 H (0-15) MM/HR Carbon Dioxide 30 H (22-29) mmol/L BUN 17 H (9-16) mg/dL Random Glucose 117 H 161 H (60-115) mg/dL Uric Acid 9.6 H (3.4-7.0) mg/dL Total Bilirubin 1.3 H (0.0-1.0) mg/dL C-Reactive Protein 5.27 H (< or = 0.50) mg/dL H & H 01/12/25 01/13/25 Range/Units 18:09 06:55 Hgb 14.3 13.9 L (14.0-18.0) g/dl Hct 43.1 41.0 L (42.0-52.0) % Ordered: SynFld Cult/Cry Procedure Result Verified Gram stain Final 01/13/25 Gram stain results: 4+ polys No organisms seen Anaerobic Culture Preliminary 01/13/25-1001 No growth to date. Appearance Final 01/13/25 Appearance Turbid Crystals Final 01/13/25 Crystals intracellular monosodium urate crystals Synovial fluid culture Preliminary 01/13/25-1001 No growth to date. Assessment and Plan (1) Acute gout: Status: Acute Plan Gout flare Reommend Rheum f/u out patient No Orthopedic intervention warranted Procedures Date of Service Date of Service: 01/14/25
--- NOTE | 2025-01-13 13:02 | PM.DS ---
DS: Providers Provider Date of Service: 01/13/25 Date of admission: 01/12/25 22:54 Date of discharge: 01/13/25 Primary care physician: Unknown Physician Consults: 01/12/25 23:09 Consult to Orthopedics Routine Consulting Provider: [facility] Reason for consultation: Right elbow pain/swelling; question septic arthritis/gout DS: Diagnosis Discharge Diagnosis (1) Effusion of elbow joint, right: Status: Acute (2) Acute gout: Status: Acute DS: Summary Hospital Course Hospital Course: From the history and physical by the admitting hospitalist, Kathy Ronquillo, 01/12/25: 59-year-old male with no significant past medical history presented to the hospital with a chief complaint of right elbow pain and swelling. Patient mentioned that he woke up with a pain in the right elbow and decreased range of motion. Denies any fevers. Reports he had an episode of gout couple of years ago on his left knee. Denies any further episodes after that. Patient denies any fever chills cough or sputum production. Denies numbness tingling or focal weakness. Review of all other systems is negative except mentioned above ER course: Per ER team, patient noted decreased range of motion on his right elbow; noted mild swelling and erythema; given pain medications. [place] [id number]; empirically covered with antibiotics. Orthopedics team was notified. Arthrocentesis showed 41390 WBCs with 98% neutrophils as well as intracellular monosodium urate crystals consistent with gout. The patient was started on colchicine and indomethacin, felt much better, and was discharged home on these meds. He should establish primary care as soon as possible and start urate-lowering therapy once acute flare has resolved. Septic arthritis was felt to be extremely unlikely in my opinion and that of the orthopedic senior consultant. In fact, he has had flares of gout in the past, most recently in 2019 in the left knee. Time Attestation Discharge Coordination Time (in mins): 35 Quality: Safe Use of Opioids Does Pt have an Active Cancer Diagnosis on the Problem List?: No Quality: Stroke Does the patient have a stroke diagnosis?: No Physical Exam Vital Signs: Vital Signs: Last Vital Signs Temp 98.0 F 01/13/25 10:00 Pulse 76 01/13/25 10:00 Resp 14 01/13/25 10:00 BP 113/72 01/13/25 10:00 Pulse Ox 98 01/13/25 10:00 O2 Del Method Room Air 01/13/25 10:00 BMI result Body Mass Index 30.0 Gen: in no acute distress HEENT: sclera anicteric, moist mucus membranes Neck: supple Lungs: clear to auscultation bilaterally Heart: regular rate and rhythm, no murmurs Abd: soft, non-tender, non-distended Ext: no edema, R elbow with swelling and clean site of arthrocentesis Skin: warm/well-perfused Neuro: alert and oriented x3, no focal findings Psych: appropriate affect DS: Data Data Completed and Pending Completed studies during hospitalization [Text1]: Laboratory Results WBC 9.4 X10*3/uL (4.8-10.8) 01/13/25 06:55 RBC 4.72 X10*6/uL (4.60-5.80) 01/13/25 06:55 Hgb 13.9 g/dl (14.0-18.0) L 01/13/25 06:55 Hct 41.0 % (42.0-52.0) L 01/13/25 06:55 MCV 86.9 fL (80.0-98.0) 01/13/25 06:55 MCH 29.4 pg (27.0-33.0) 01/13/25 06:55 MCHC 33.9 g/dl (31.0-36.0) 01/13/25 06:55 RDW 13.5 % (11.0-16.0) 01/13/25 06:55 Plt Count 228 X10*3/uL (160-400) 01/13/25 06:55 MPV 10.6 fL (9.4-12.4) 01/13/25 06:55 Immature Gran % (Auto) 0.4 % (0.0-0.4) 01/13/25 06:55 Neut % (Auto) 87.8 % (45-73) H 01/13/25 06:55 Lymph % (Auto) 9.5 % (20-40) L 01/13/25 06:55 [place] % (Auto) 2.1 % (2-11) 01/13/25 06:55 Eos % (Auto) 0.0 % (0-4) 01/13/25 06:55 Baso % (Auto) 0.2 % (0-2) 01/13/25 06:55 Lymph # (Auto) 0.9 X10*3/uL (1.2-4.9) L 01/13/25 06:55 [place] # (Auto) 0.2 X10*3/uL (0.1-1.2) 01/13/25 06:55 Eos # (Auto) 0.0 X10*3/uL (0.0-0.4) 01/13/25 06:55 Baso # (Auto) 0.0 X10*3/uL (0.0-0.2) 01/13/25 06:55 Abs Immat Gran (auto) 0.04 X10*3/uL (0.00-0.03) H 01/13/25 06:55 Absolute Neuts (auto) 8.2 x10*3/uL (2.0-8.3) 01/13/25 06:55 Absolute Nucleated RBC 0.000 X10*3/uL (0.0-0.012) 01/13/25 06:55 Nucleated RBC % (auto) 0.0 /100WBC (0.0-0.2) 01/13/25 06:55 ESR 20 MM/HR (0-15) H 01/12/25 18:09 Sodium 139 mmol/L (135-145) 01/13/25 06:55 Potassium 4.8 mmol/L (3.3-5.1) 01/13/25 06:55 Chloride 104 mmol/L (96-108) 01/13/25 06:55 Carbon Dioxide 24 mmol/L (22-29) 01/13/25 06:55 Anion Gap 16 (12-20) 01/13/25 06:55 BUN 17 mg/dL (9-16) H 01/13/25 06:55 Creatinine 1.04 mg/dL (0.5-1.4) 01/13/25 06:55 Estim Creat Clear Calc 88.8 01/13/25 06:55 Estimated GFR > 60 01/13/25 06:55 Random Glucose 161 mg/dL (60-115) H 01/13/25 06:55 Estimat Average Glucose 108 mg/dL 01/13/25 06:55 Hemoglobin A1c % 5.4 % (<6.0) 01/13/25 06:55 Lactic Acid 1.1 mmol/L (0.5-2.0) 01/12/25 18:09 Uric Acid 9.6 mg/dL (3.4-7.0) H 01/12/25 18:09 Calcium 9.6 mg/dL (8.4-10.2) 01/13/25 06:55 Total Bilirubin 1.3 mg/dL (0.0-1.0) H 01/12/25 18:09 AST 21 U/L (5-37) 01/12/25 18:09 ALT 22 U/L (0-40) 01/12/25 18:09 Alkaline Phosphatase 73 U/L (39-117) 01/12/25 18:09 C-Reactive Protein 5.27 mg/dL (< or = 0.50) H 01/12/25 18:09 Total Protein 7.8 g/dL (6.5-8.0) 01/12/25 18:09 Albumin 4.9 g/dL (3.5-5.0) 01/12/25 18:09 Synovial Source RIGHT ELBOW 01/12/25 21:15 Synovial WBC 96.460 X10*3/uL 01/12/25 21:15 Synovial RBC < 0.002 X10*6/uL 01/12/25 21:15 Synovial Neutrophils 98 % 01/12/25 21:15 Synovial Monocytes 2 % 01/12/25 21:15 Impressions Ankle X-Ray 01/12/25 12:50 IMPRESSION: Mild soft tissue swelling. No acute fracture or dislocation. Electronically signed by: Julio C Constantino MD 01/12/2025 02:06 PM EDT RP Elbow X-Ray 01/12/25 12:54 IMPRESSION: Unremarkable right elbow exam. Electronically signed by: Julio C Constantino MD 01/12/2025 02:05 PM EDT RP Discharge Plan Discharge Anticipated Discharge Date/Time: 01/13/25 16:48 Patient Disposition: Home, Self-Care Discharge Diagnosis: acute gout flare Referrals: [facility] [place] Primary Care, Summer [Provider Group] - 1 Week Meuse,Ta-Precious, PA-C [Physician [employer]anger [employer]ter] - 2 Weeks Physician,Unknown J [Primary Care Provider] - 1 Week Discharge Medications: New indomethacin 25 mg Capsule 50 mg PO TID PRN (Reason: gout pain) Qty: 30 0RF colchicine [Colcrys] 0.6 mg Tablet 0.6 mg PO BID Qty: 28 0RF Discharge Orders: Discharge Order (Routine); Ordered 01/13/25 Ordered By: Bren Mancia Diet: low-purine Activity on Discharge: As tolerated Stand Alone Forms: Patient Portal Discharge page Print Language: Setswana Care Plan Goals: treatment of gout Health Concerns: acute gout flare Plan of Treatment: colchicine 0.6 mg twice daily, continue until 48 hours after symptoms resolve indomethacin 50 mg 3x a day as needed for pain/swelling establish primary care as soon as possible to start urate-lowering therapy [allopurinol] follow up with Orthopedics in 1-2 weeks Assessment: See Discharge Summary. Patient Instructions: Gout (ED)
[2025-01-13 13:22] VITALS: BP 137/78; PULSE 75; RESP 16; TEMP 36.4; O2SAT 99
[2025-01-15 15:26] LABS: Glucose Synovial Fluid 50
== END 2025-01-13 13:25 | disposition home or self-care (01) ==
LOC: HO.ED 22:56 → HO.EDOVER 23:01
PROVIDERS: Nurse Practitioner Family; Admitting Provider Physician Assistant; Emergency Provider Emergency Medicine; Visit Provider Family Medicine
DX: M25.421 Effusion, right elbow (principal); M10.9 Gout, unspecified; M25.572 Pain in left ankle and joints of left foot; M25.521 Pain in right elbow; R50.9 Fever, unspecified; R61 Generalized hyperhidrosis
CPT/HCPCS: 20605; 36415; 73080; 73200; 73610; 80048; 80053; 82945; 83036; 83605; 84550; 85025; 85652; 86140; 87040; 87070; 87073; 87205; 89051; 89060; 96365; 96366; 96375; 99221; 99285; J0696; J1885; J2004; J2470; J2919; J3370

== ENCOUNTER → 2025-01-12 13:32 | Outpatient (BNV) | payer OTHER, SELFPAY | PROVIDERS: Visit Provider Radiology Diagnostic Radiology | DX: M19.021 Primary osteoarthritis, right elbow (principal); M25.421 Effusion, right elbow; M25.572 Pain in left ankle and joints of left foot; M25.521 Pain in right elbow | CPT/HCPCS: 73080; 73200; 73610 ==

== ENCOUNTER → 2025-01-12 22:54 | Outpatient (BNV) | payer OTHER, SELFPAY | PROVIDERS: Admitting Provider Physician Assistant; Emergency Provider Emergency Medicine; Visit Provider Physician Assistant | DX: M10.9 Gout, unspecified (principal) | CPT/HCPCS: 99221 ==

== ENCOUNTER → 2025-01-12 22:54 | Outpatient (BNV) | payer OTHER, SELFPAY | PROVIDERS: Admitting Provider Physician Assistant; Emergency Provider Emergency Medicine; Visit Provider Family Medicine | DX: M25.421 Effusion, right elbow (principal); M10.9 Gout, unspecified | CPT/HCPCS: 99223; 99239 ==